=== PATIENT | female | born 1965 | race Caucasian/White ===

== ENCOUNTER 2024-01-29 11:04 | Emergency (ER) | payer MEDICARE ==
[~2024-01-29] VITALS: Ht 172.7 cm; Wt 136.0 kg
[~2024-01-29 11:04] MED LIST: METHOCARBAMOL500 MG PO; NAPROXEN500 MG PO
[2024-01-29] MEDS ORDERED: KETOROLAC TROMETHAMINE 30 MG/ML SDV IV ONE (12:00)
[2024-01-29 12:13] LABS: BASO% 0.3 % (0-3); EOS% 0.6 % (0-8); HEMATOCRIT 36.2 % (37.0-47.0); HEMOGLOBIN 11.3 g/dl (12.0-16.0); IMMATURE GRANULOCYTES 0.2 % (0.0-5.0); LYMPH% 6.6 % (15-41); MEAN CELL VOLUME 84.6 fL CALC (80.0-100.0); MEAN CORPUSCULAR HGB 26.4 pG CALC (26.0-32.0); MEAN CORPUSCULAR HGB CONC 31.2 g/dL CAL (32.0-36.0); MONO% 8.3 % (2-13); NEUT# 14.02 thou/uL (2.00-7.15); RED BLOOD COUNT 4.28 mill/uL (4.20-5.60)
[2024-01-29 12:28] LABS: ALBUMIN 3.9 g/dL (3.2-5.0); ALKALINE PHOSPHATASE 122 u/l (38-126); ANION GAP 10 (6-22 (CALC)); BILIRUBIN, TOTAL 0.8 mg/dL (0.02-1.3); BUN 10 mg/dL (7-17); BUN/CREATININE RATIO 11 (12-20 (CALC)); CARBON DIOXIDE 24 mmol/l (22-30); CHLORIDE 105 mmol/l (95-108); CREATININE 0.9 mg/dL (0.5-1.0); ESTIMATED GFR 74 ML/MIN (>=90 (CALC)); SGOT/AST 25 u/l (14-36); SODIUM 134 mmol/l (137-146); TOTAL PROTEIN 8.2 g/dL (6.3-8.2)
[2024-01-29] MEDS ORDERED: AMOX/K CLAV875 M1 PO (15:18)
[2024-01-29] MEDS ORDERED: DOXY-CAPS100 MG PO (15:18)
[2024-01-29] MEDS ORDERED: ZOFRAN4 MG/TAB PO (15:24)
[2024-01-29] MEDS ORDERED: HYDROCO/APAP1 TA9 PO (15:24)
[2024-01-29 15:30] VITALS: BP 130/99
== END 2024-01-29 15:40 | disposition home or self-care (01) ==
LOC: ED 11:04
PROVIDERS: Family Medicine
DX: J18.9 Pneumonia, unspecified organism (principal); R91.8 Other nonspecific abnormal finding of lung field; J45.909 Unspecified asthma, uncomplicated; E66.9 Obesity, unspecified; Z20.822 Contact with and (suspected) exposure to COVID-19
CPT/HCPCS: Q9967

== ENCOUNTER 2024-04-29 08:00 | Day surgery (SDC) | payer MEDICARE ==
[~2024-04-29 08:00] MED LIST changes: +AMOX/K CLAV875 M1 PO; +DOXY-CAPS100 MG PO; +HYDROCO/APAP1 TA9 PO; +ZOFRAN4 MG/TAB PO
[2024-04-29] MEDS ORDERED: FAMOTIDINE 10MG/ML 2ML SDV IV ONE (08:12)
[2024-04-29] MEDS ORDERED: LACTATED RINGER'S 1,000 ML IV ONE (08:12)
[2024-04-29] MEDS ORDERED: ALLERGY RE50 MCG/ACT (08:22)
[2024-04-29] MEDS ORDERED: ALBUTEROL SUL1.25 MG (08:23)
[2024-04-29 09:36] VITALS: BP 113/90
[2024-04-29] MEDS ORDERED: GLYCOPYRROLATE 0.2 MG/ML IV ONE (13:45)
[2024-04-29] MEDS ORDERED: PROPOFOL 200 MG/20 ML VIAL IV ONE (13:45)
[2024-04-29] MEDS ORDERED: LIDOCAINE HCL 2% 2ML SDV IV ONE (13:45)
== END 2024-04-29 09:57 | disposition home or self-care (01) ==
LOC: ENDO 08:00
PROVIDERS: ATTEND Internal Medicine Gastroenterology
PROC: 0DJD8ZZ Inspection of Lower Intestinal Tract, Via Natural or Artificial Opening Endoscopic (ICD-10-PCS; principal; 2024-04-29)
DX: Z12.11 Encounter for screening for malignant neoplasm of colon (principal); K64.8 Other hemorrhoids